=== PATIENT | female | born 1940 | race African-American/Black ===

== ENCOUNTER 2019-09-28 09:37 | Inpatient (IN) | payer OTHER, MEDICAID ==
[~2019-09-28] VITALS: Ht 165.1 cm; Wt 74.4 kg
[2019-09-28] MEDS ORDERED: AMLODIPINE 10MG TABLET PO ONE (10:45)
[2019-09-28 11:49] LABS: BASOPHILS % 0.8 % (0.0-2.0); EOSINOPHILS % 7.7 % (0.0-5.0); HEMATOCRIT. 31.5 % (42.0-52.0); HEMOGLOBIN. 10.2 g/dL (14.0-18.0); LYMPHOCYTES % 23.9 % (20.0-50.0); MEAN CORPUSCULAR HEMOGLOBIN 22.8 pg (28.0-32.0); MEAN PLATELET VOLUME 9.3 fl (7.4-10.4); MONOCYTES % 4.7 % (2.0-8.0); NEUTROPHILS % 62.9 % (40.0-76.0); PLATELET 248 x1000/uL (130-400); RED CELL DISTRIBUTION WIDTH 17.9 % (11.6-14.6)
[2019-09-28 11:55] LABS: CLARITY URINE CLEAR (CLEAR); COLOR URINE YELLOW (YELLOW); KETONES URINE NEGATIVE (NEGATIVE); LEUKOCYTE ESTERASE URINE NEGATIVE (NEGATIVE); NITRITE URINE NEGATIVE (NEGATIVE); OCCULT BLOOD URINE NEGATIVE (NEGATIVE); PROTEIN URINE 2+ (NEGATIVE); SPECIFIC GRAVITY URINE 1.012 (1.005-1.030); UROBILINOGEN URINE 0.2 E.U./dL (0.2-1.0)
[2019-09-28 11:57] LABS: CHLORIDE 115 mEq/L (98-107)
[2019-09-28] MEDS ORDERED: SODIUM CHLORIDE 0.9% 250 ML IV ONE (12:45)
[2019-09-28 12:46] LABS: PLATELET ESTIMATE NORMAL
[2019-09-28] MEDS ORDERED: ACETAMINOPHEN 325MG TABLET PO PRN (13:15)
[2019-09-28] MEDS ORDERED: ONDANSETRON HCL 4MG/2ML INJ IV PRN (13:15)
[2019-09-28] MEDS ORDERED: CLONIDINE 0.1MG TABLET PO NR (14:00)
[2019-09-28] MEDS: SODIUM CHLORIDE 0.9% 1,000 ML IV SCH (16:17)
[2019-09-29] VITALS (7 sets, daily range): BP systolic 121–170; BP diastolic 62–84
[2019-09-29] MEDS ORDERED: DEXTROSE 50% WATER 50ML SYRINGE IV PRN (01:00)
[2019-09-29] MEDS ORDERED: CHLO25TA2 PO (01:16)
[2019-09-29] MEDS ORDERED: GLIP10TA10 PO (01:17)
[2019-09-29] MEDS ORDERED: ATOR20TA65 PO (01:17)
[2019-09-29] MEDS ORDERED: ASPI-1158 PO (01:17)
[2019-09-29] MEDS ORDERED: FAMO20TA8 PO (01:17)
[2019-09-29] MEDS ORDERED: NIFE30TA94 PO (01:17)
[2019-09-29] MEDS ORDERED: CARV6.2548 PO (01:17)
[2019-09-29] MEDS: CLONIDINE 0.1MG TABLET PO PRN (05:51)
[2019-09-29] MEDS: BLOOD SUGAR DIAGNOSTIC STRIP TEST SCH ×4 (05:58→21:22)
[2019-09-29] MEDS: SODIUM CHLORIDE 0.9% 1,000 ML IV SCH (06:06)
[2019-09-29] MEDS ORDERED: INSULIN LISPRO 100 UNITS/ML SUBCUT SCH (08:10)
[2019-09-29 08:36] LABS: BASOPHILS % 0.7 % (0.0-2.0); EOSINOPHILS % 11.6 % (0.0-5.0); HEMATOCRIT. 24.2 % (36.0-48.0); HEMOGLOBIN. 7.8 g/dL (12.0-16.0); MEAN CORPUSCULAR HEMOGLOBIN 22.4 pg (28.0-32.0); MEAN CORPUSCULAR VOLUME 69.7 fL (81.0-99.0); MEAN PLATELET VOLUME 9.3 fl (7.4-10.4); MONOCYTES % 6.3 % (2.0-8.0); NEUTROPHILS % 51.4 % (40.0-76.0); PLATELET 232 x1000/uL (130-400); RED BLOOD CELL COUNT 3.47 mill/uL (4.2-5.4); RED CELL DISTRIBUTION WIDTH 17.9 % (11.6-14.6)
[2019-09-29] MEDS ORDERED: ENOXAPARIN 30MG/0.3ML SYR SUBCUT SCH (09:00)
[2019-09-29] MEDS ORDERED: CLOPIDOGREL 75MG TABLET PO SCH (09:00)
[2019-09-29] MEDS: AMLODIPINE 10MG TABLET PO SCH (09:24)
[2019-09-29 10:51] LABS: BG CARBOXYHEMOGLOBIN 0.3 % (0.5-1.5); BG DEOXYHEMOGLOBIN 3.9 % (0.0-5.0); BG FRACTION INSPIRED OXYGEN 21; BG HCO3 ACT 20.1 mmol/L (22.0-26.0); BG METHEMOGLOBIN 0.3 % (0.0-1.5); BG OXYGEN SATURATION 96.1 % (92.0-98.5); BG OXYHEMOGLOBIN 95.5 % (94.0-97.0); BG PCO2 36.9 mmHg (35.0-45.0); BG PH 7.353 (7.350-7.450); BG SAMPLE SITE RIGHT BRACHIAL; BG TOTAL HEMOGLOBIN 7.9 g/dL (12.0-18.0); BG VENT MODE ROOM AIR
[2019-09-29] MEDS: DEXT 5%/0.45% NACL 1000ML 1,000 ML IV SCH (12:39)
[2019-09-29 12:51] LABS: HEMATOCRIT 26.1 % (36.0-48.0); HEMOGLOBIN 8.6 g/dL (12.0-16.0)
[2019-09-29 13:01] LABS: INR 1.1; PROTHROMBIN TIME 10.9 sec (9.6-11.0)
[2019-09-29 13:32] LABS: TOTAL IRON BINDING CAPACITY 162 ug/dL (250-450)
[2019-09-30] VITALS (9 sets, daily range): BP systolic 138–186; BP diastolic 60–83
[2019-09-30] MEDS: CLONIDINE 0.1MG TABLET PO PRN ×2 (01:04→16:07)
[2019-09-30] MEDS: DEXT 5%/0.45% NACL 1000ML 1,000 ML IV SCH (04:22)
[2019-09-30] MEDS: BLOOD SUGAR DIAGNOSTIC STRIP TEST SCH ×4 (06:36→21:05)
[2019-09-30 07:06] LABS: HEMATOCRIT 22.1 % (36.0-48.0); HEMOGLOBIN 7.4 g/dL (12.0-16.0); MEAN CORPUSCULAR HEMOGLOBIN 23.1 pg (28.0-32.0); MEAN CORPUSCULAR VOLUME 69.2 fL (81.0-99.0); PLATELET 217 x1000/uL (130-400); RED BLOOD CELL COUNT 3.19 mill/uL (4.2-5.4); RED CELL DISTRIBUTION WIDTH 17.5 % (11.6-14.6)
[2019-09-30] MEDS: AMLODIPINE 10MG TABLET PO SCH (09:33)
[2019-09-30] MEDS ORDERED: PANTOPRAZOLE 40MG DR TABLET PO SCH (10:00)
[2019-09-30] MEDS ORDERED: HYDRALAZINE 20MG/ML VIAL IV PRN (16:15)
[2019-09-30] MEDS ORDERED: METOPROLOL TARTRATE 25MG TABLET PO NR (16:19)
[2019-09-30] MEDS ORDERED: HYDRALAZINE 20MG/ML VIAL IV NR (16:19)
[2019-09-30 19:43] LABS: HEMATOCRIT 29.2 % (36.0-48.0); HEMOGLOBIN 9.6 g/dL (12.0-16.0)
[2019-09-30 19:49] LABS: PROTHROMBIN TIME 10.6 sec (9.6-11.0)
[2019-09-30] MEDS ORDERED: METOPROLOL TARTRATE 25MG TABLET PO SCH (21:00)
[2019-09-30] MEDS ORDERED: HYDRALAZINE HCL 50MG TABLET PO SCH (22:00)
== END 2019-09-30 22:22 | DRG 74 ==
LOC: EDSEX 09:37 → ER 09:37 → 7WST 15:06 → EDBEDREQ 15:11 → EDBEDREQTM 15:11 → ENRESERV 22:33
PROVIDERS: ADMIT Internal Medicine; ATTEND Internal Medicine
PROC: 30233N1 Transfusion of Nonautologous Red Blood Cells into Peripheral Vein, Percutaneous Approach (ICD-10-PCS; principal; 2019-09-30)
DX: G90.8 Other disorders of autonomic nervous system (principal); N17.9 Acute kidney failure, unspecified; E44.1 Mild protein-calorie malnutrition; I13.0 Hypertensive heart and chronic kidney disease with heart failure and stage 1 through stage 4 chronic kidney disease, or unspecified chronic kidney disease; I31.3 Pericardial effusion (noninflammatory); E11.22 Type 2 diabetes mellitus with diabetic chronic kidney disease; E11.649 Type 2 diabetes mellitus with hypoglycemia without coma; E87.8 Other disorders of electrolyte and fluid balance, not elsewhere classified; I16.0 Hypertensive urgency; I50.9 Heart failure, unspecified; N18.9 Chronic kidney disease, unspecified; E86.0 Dehydration; Z79.84 Long term (current) use of oral hypoglycemic drugs; Z86.73 Personal history of transient ischemic attack (TIA), and cerebral infarction without residual deficits; D64.89 Other specified anemias
CPT/HCPCS: 36415; 36600; 71045; 74176; 80048; 80053; 80061; 81003; 82375; 82805; 82962; 83036; 83540; 83550; 83880; 84443; 84484; 85014; 85018; 85025; 85027; 85044; 85384; 86850; 86900; 86920; 93005; 93306; 93880; 96360; 96361; 97162; 99285; A6261; C1893; J0360; J1650; J7040; J7050; P9016

== ENCOUNTER 2020-02-19 09:42 | Inpatient (IN) | payer OTHER, MEDICAID ==
[~2020-02-19] VITALS: Ht 162.6 cm; Wt 79.8 kg
[2020-02-19] VITALS (29 sets, daily range): BP systolic 118–175; BP diastolic 51–122
[~2020-02-19 09:42] MED LIST: ASPI-1158 PO; ATOR20TA65 PO; CARV6.2548 PO; CHLO25TA2 PO; FAMO20TA8 PO; GLIP10TA10 PO; NIFE30TA94 PO
[2020-02-19] MEDS ORDERED: ATROPINE SULFATE 1MG/ML VIAL IV ONE (10:00)
[2020-02-19] MEDS ORDERED: ATROPINE SULFATE 1MG/10ML SYR IV ONE (10:11)
[2020-02-19] MEDS ORDERED: DOPAMINE 400MG/250ML PREMIX 250 ML IV ONE (10:15)
[2020-02-19 10:25] LABS: BASOPHILS % 0.8 % (0.0-2.0); EOSINOPHILS % 9.1 % (0.0-5.0); HEMATOCRIT. 23.1 % (36.0-48.0); HEMOGLOBIN. 7.7 g/dL (12.0-16.0); LYMPHOCYTES % 28.5 % (20.0-50.0); MEAN CORPUSCULAR HEMOGLOBIN 22.8 pg (28.0-32.0); MEAN CORPUSCULAR VOLUME 68.7 fL (81.0-99.0); MONOCYTES % 6.3 % (2.0-8.0); NEUTROPHILS % 55.3 % (40.0-76.0); PLATELET 166 x1000/uL (130-400); RED BLOOD CELL COUNT 3.36 mill/uL (4.2-5.4); RED CELL DISTRIBUTION WIDTH 15.4 % (11.6-14.6)
[2020-02-19 10:32] LABS: CHLORIDE 107 mEq/L (98-107)
[2020-02-19 10:34] LABS: PROTHROMBIN TIME 10.9 sec (9.6-11.0)
[2020-02-19] MEDS ORDERED: SODIUM CHLORIDE 0.9% 500 ML IV ONE (10:34)
[2020-02-19 10:40] LABS: CREATINE KINASE 238 IU/L (26-192)
[2020-02-19] MEDS ORDERED: SODIUM POLYSTYRENE SULFONATE 15 G/60 ML BOT PO SCH (11:00)
[2020-02-19 11:12] LABS: BG BASE EXCESS -10.4 mmol/L (-2.0-2.0); BG CARBOXYHEMOGLOBIN 0.9 % (0.5-1.5); BG DEOXYHEMOGLOBIN 7.6 % (0.0-5.0); BG FRACTION INSPIRED OXYGEN 21; BG HCO3 ACT 15.7 mmol/L (22.0-26.0); BG METHEMOGLOBIN 0.3 % (0.0-1.5); BG OXYGEN SATURATION 92.3 % (92.0-98.5); BG OXYHEMOGLOBIN 91.2 % (94.0-97.0); BG PCO2 35.6 mmHg (35.0-45.0); BG PH 7.262 (7.350-7.450); BG PO2 69.1 mmHg (75.0-100.0); BG SAMPLE SITE RIGHT RADIAL; BG TOTAL HEMOGLOBIN 7.3 g/dL (12.0-18.0); BG VENT MODE ROOM AIR
[2020-02-19 11:17] LABS: CLARITY URINE CLEAR (CLEAR); COLOR URINE YELLOW (YELLOW); KETONES URINE NEGATIVE (NEGATIVE); LEUKOCYTE ESTERASE URINE TRACE (NEGATIVE); NITRITE URINE NEGATIVE (NEGATIVE); OCCULT BLOOD URINE NEGATIVE (NEGATIVE); PROTEIN URINE 1+ (NEGATIVE); SPECIFIC GRAVITY URINE 1.015 (1.005-1.030); UROBILINOGEN URINE 0.2 E.U./dL (0.2-1.0)
[2020-02-19 11:18] LABS: PLATELET ESTIMATE NORMAL
[2020-02-19] MEDS ORDERED: SODIUM BICARBONATE 8.4% 1 MEQ/ML 50ML SYR IV ONE (11:30)
[2020-02-19] MEDS: NOREPINEPHRINE 4 MG in DEXT 5% WATER 246 ML IV PRN ×2 (12:50→17:55)
[2020-02-19 13:16] LABS: PHOSPHORUS 5.8 mg/dL (2.5-4.9)
[2020-02-19 13:20] LABS: T4 FREE 1.01 ng/dL (0.76-1.46)
[2020-02-19] MEDS ORDERED: ACETAMINOPHEN 325MG TABLET PO PRN (15:15)
[2020-02-19] MEDS ORDERED: ACETAMINOPHEN 650MG SUPP PR PRN (15:15)
[2020-02-19] MEDS ORDERED: HYDROCODONE/ACETAMINOPHEN 5/325MG TABLET PO PRN (15:15)
[2020-02-19] MEDS ORDERED: IPRATROPIUM/ALBUTEROL 0.5-3(2.5)MG/3ML NEB HHN PRN (15:15)
[2020-02-19] MEDS ORDERED: DEXTROSE 50% WATER 50ML SYRINGE IV PRN (15:15)
[2020-02-19] MEDS ORDERED: WATER IV PRN (15:30)
[2020-02-19] MEDS ORDERED: DEXT 5% IV PRN (15:30)
[2020-02-19] MEDS ORDERED: MAGNESIUM 1 G PREMIX 100 ML IV SCH (15:30)
[2020-02-19] MEDS ORDERED: DOPAMINE HCL IV PRN (15:30)
[2020-02-19 16:54] LABS: BG BASE EXCESS -9.7 mmol/L (-2.0-2.0); BG CARBOXYHEMOGLOBIN 0.4 % (0.5-1.5); BG DEOXYHEMOGLOBIN 3.7 % (0.0-5.0); BG FRACTION INSPIRED OXYGEN 21; BG METHEMOGLOBIN 0.3 % (0.0-1.5); BG OXYGEN SATURATION 96.3 % (92.0-98.5); BG OXYHEMOGLOBIN 95.6 % (94.0-97.0); BG PCO2 33.8 mmHg (35.0-45.0); BG PH 7.292 (7.350-7.450); BG PO2 88.1 mmHg (75.0-100.0); BG SAMPLE SITE RIGHT RADIAL; BG TOTAL HEMOGLOBIN 8.4 g/dL (12.0-18.0); BG VENT MODE ROOM AIR
[2020-02-19] MEDS ORDERED: PIPERACILLIN/TAZOBACTAM 2.25 G in DEXTROSE 5% WATER 50 ML IV SCH (17:00)
[2020-02-19] MEDS: BLOOD SUGAR DIAGNOSTIC STRIP TEST SCH ×2 (17:55→21:05)
[2020-02-19] MEDS ORDERED: NOREPINEPHRINE 16 MG in DEXT 5% WATER 234 ML IV PRN (18:00)
[2020-02-19] MEDS: FAMOTIDINE 20MG/2ML VIAL IV SCH (18:01)
[2020-02-19] MEDS: INSULIN LISPRO 100 UNITS/ML SUBCUT SCH ×2 (18:01→21:00)
[2020-02-19] MEDS: PIPERACILLIN/TAZOBACTAM 2.25 G in DEXTROSE 5% WATER 50 ML IV SCH (18:02)
[2020-02-19] MEDS ORDERED: PHENYLEPHRINE 10 MG in DEXT 5% WATER 249 ML IV PRN (19:00)
[2020-02-19] MEDS ORDERED: INSU100V37 SQ (19:55)
[2020-02-19] MEDS ORDERED: FERR325T6 MT (19:55)
[2020-02-19] MEDS ORDERED: MECL-183 PO (19:55)
[2020-02-19] MEDS ORDERED: PANT40TA4 MT (19:55)
[2020-02-19] MEDS ORDERED: TERA5CAP4 PO (19:55)
[2020-02-19] MEDS ORDERED: METO-539 MT (19:55)
[2020-02-19] MEDS ORDERED: INSU100I28 SQ (19:55)
[2020-02-19] MEDS ORDERED: HYDR-4135 MT (19:55)
[2020-02-19] MEDS ORDERED: FURO20TA4 PO (19:55)
[2020-02-19] MEDS ORDERED: LOSA100T32 MT (19:55)
[2020-02-19] MEDS ORDERED: EPOETIN ALFA 10000UNITS/ML VIAL SUBCUT NR (22:00)
[2020-02-20] VITALS (52 sets, daily range): BP systolic 117–187; BP diastolic 52–120
[2020-02-20] MEDS: HYDRALAZINE 20MG/ML VIAL IV PRN ×3 (01:24→16:22)
[2020-02-20] MEDS: PIPERACILLIN/TAZOBACTAM 2.25 G in DEXTROSE 5% WATER 50 ML IV SCH ×2 (05:23→16:57)
[2020-02-20 05:57] LABS: BASOPHILS % 0.9 % (0.0-2.0); EOSINOPHILS % 4.8 % (0.0-5.0); HEMATOCRIT. 25.5 % (36.0-48.0); HEMOGLOBIN. 8.8 g/dL (12.0-16.0); LYMPHOCYTES % 16.7 % (20.0-50.0); MEAN CORPUSCULAR VOLUME 69.5 fL (81.0-99.0); MEAN PLATELET VOLUME 9.1 fl (7.4-10.4); MONOCYTES % 6.8 % (2.0-8.0); NEUTROPHILS % 70.8 % (40.0-76.0); PLATELET 151 x1000/uL (130-400); RED BLOOD CELL COUNT 3.67 mill/uL (4.2-5.4); RED CELL DISTRIBUTION WIDTH 16.3 % (11.6-14.6)
[2020-02-20] MEDS ORDERED: NITROGLYCERIN OINT 1GM/INCH UDPKT TD SCH (06:00)
[2020-02-20 06:08] LABS: CHLORIDE 106 mEq/L (98-107)
[2020-02-20 06:19] LABS: PHOSPHORUS 4.3 mg/dL (2.5-4.9)
[2020-02-20] MEDS: INSULIN LISPRO 100 UNITS/ML SUBCUT SCH ×4 (08:20→20:30)
[2020-02-20] MEDS: FAMOTIDINE 20MG/2ML VIAL IV SCH (08:49)
[2020-02-20] MEDS: BLOOD SUGAR DIAGNOSTIC STRIP TEST SCH ×4 (08:49→20:30)
[2020-02-20 10:10] LABS: BG BASE EXCESS -0.7 mmol/L (-2.0-2.0); BG CARBOXYHEMOGLOBIN 0.1 % (0.5-1.5); BG DEOXYHEMOGLOBIN 2.8 % (0.0-5.0); BG FRACTION INSPIRED OXYGEN 21; BG HCO3 ACT 23.4 mmol/L (22.0-26.0); BG METHEMOGLOBIN 0.3 % (0.0-1.5); BG OXYGEN SATURATION 97.2 % (92.0-98.5); BG OXYHEMOGLOBIN 96.8 % (94.0-97.0); BG PCO2 36.3 mmHg (35.0-45.0); BG PH 7.428 (7.350-7.450); BG PO2 104.7 mmHg (75.0-100.0); BG SAMPLE SITE RIGHT RADIAL; BG TOTAL HEMOGLOBIN 8.8 g/dL (12.0-18.0); BG VENT MODE ROOM AIR
[2020-02-20] MEDS ORDERED: AMLODIPINE 5MG TABLET PO SCH ×2 (11:00→21:00)
[2020-02-20] MEDS ORDERED: LABETALOL 5MG/ML SYR 20 MG/4 ML SYRINGE IV NR (20:00)
[2020-02-20] MEDS: AMLODIPINE 5MG TABLET PO SCH (20:30)
[2020-02-20] MEDS: CLONIDINE 0.2MG TABLET PO SCH (21:35)
[2020-02-21] VITALS (28 sets, daily range): BP systolic 125–183; BP diastolic 52–119
[2020-02-21] MEDS: PIPERACILLIN/TAZOBACTAM 2.25 G in DEXTROSE 5% WATER 50 ML IV SCH ×2 (05:30→17:37)
[2020-02-21] MEDS: CLONIDINE 0.2MG TABLET PO SCH ×3 (05:30→22:14)
[2020-02-21 05:41] LABS: EOSINOPHILS % 5.9 % (0.0-5.0); HEMATOCRIT. 23.4 % (36.0-48.0); HEMOGLOBIN. 8.1 g/dL (12.0-16.0); LYMPHOCYTES % 19.6 % (20.0-50.0); MEAN CORPUSCULAR HEMOGLOBIN 23.8 pg (28.0-32.0); MEAN CORPUSCULAR VOLUME 69.1 fL (81.0-99.0); MEAN PLATELET VOLUME 9.1 fl (7.4-10.4); MONOCYTES % 9.2 % (2.0-8.0); NEUTROPHILS % 64.3 % (40.0-76.0); PLATELET 155 x1000/uL (130-400); RED BLOOD CELL COUNT 3.39 mill/uL (4.2-5.4)
[2020-02-21] MEDS: INSULIN LISPRO 100 UNITS/ML SUBCUT SCH ×3 (08:20→20:15)
[2020-02-21] MEDS: FAMOTIDINE 20MG/2ML VIAL IV SCH (08:23)
[2020-02-21] MEDS: BLOOD SUGAR DIAGNOSTIC STRIP TEST SCH ×4 (08:23→20:14)
[2020-02-21] MEDS: AMLODIPINE 5MG TABLET PO SCH ×2 (08:23→20:14)
[2020-02-21] MEDS: NYSTATIN POWDER 15GM TOP SCH (16:00)
[2020-02-21] MEDS: HYDRALAZINE 20MG/ML VIAL IV PRN (21:05)
[2020-02-22] VITALS (12 sets, daily range): BP systolic 95–173; BP diastolic 59–83
[2020-02-22] MEDS: CLONIDINE 0.2MG TABLET PO SCH ×3 (05:22→22:02)
[2020-02-22] MEDS: BLOOD SUGAR DIAGNOSTIC STRIP TEST SCH ×4 (05:22→21:15)
[2020-02-22] MEDS: PIPERACILLIN/TAZOBACTAM 2.25 G in DEXTROSE 5% WATER 50 ML IV SCH ×2 (05:22→17:02)
[2020-02-22] MEDS: INSULIN LISPRO 100 UNITS/ML SUBCUT SCH ×4 (07:20→21:00)
[2020-02-22 07:42] LABS: HEMATOCRIT 24.3 % (36.0-48.0); HEMOGLOBIN 8.3 g/dL (12.0-16.0); MEAN CORPUSCULAR HEMOGLOBIN 23.9 pg (28.0-32.0); MEAN CORPUSCULAR VOLUME 69.6 fL (81.0-99.0); PLATELET 154 x1000/uL (130-400); RED BLOOD CELL COUNT 3.49 mill/uL (4.2-5.4); RED CELL DISTRIBUTION WIDTH 16.1 % (11.6-14.6)
[2020-02-22] MEDS: FAMOTIDINE 20MG/2ML VIAL IV SCH (08:31)
[2020-02-22] MEDS: AMLODIPINE 5MG TABLET PO SCH ×2 (08:31→21:12)
[2020-02-22] MEDS: NYSTATIN POWDER 15GM TOP SCH (08:31)
[2020-02-22 08:45] LABS: CHLORIDE 105 mEq/L (98-107)
[2020-02-22] MEDS: HYDRALAZINE 20MG/ML VIAL IV PRN (14:16)
[2020-02-22] MEDS: HEPARIN 5000 UNITS/ML VIAL SUBCUT SCH ×2 (14:18→21:11)
[2020-02-22] MEDS ORDERED: HYDRALAZINE HCL 25MG TABLET PO NR (15:30)
[2020-02-22] MEDS: HYDRALAZINE HCL 25MG TABLET PO SCH (22:02)
[2020-02-23] VITALS (12 sets, daily range): BP systolic 131–171; BP diastolic 57–77
[2020-02-23] MEDS: PIPERACILLIN/TAZOBACTAM 2.25 G in DEXTROSE 5% WATER 50 ML IV SCH ×2 (05:14→16:31)
[2020-02-23] MEDS: HYDRALAZINE HCL 25MG TABLET PO SCH (05:14)
[2020-02-23] MEDS: CLONIDINE 0.2MG TABLET PO SCH ×3 (05:15→22:07)
[2020-02-23] MEDS: BLOOD SUGAR DIAGNOSTIC STRIP TEST SCH ×4 (06:56→20:49)
[2020-02-23] MEDS: INSULIN LISPRO 100 UNITS/ML SUBCUT SCH ×4 (06:56→20:49)
[2020-02-23 08:11] LABS: BASOPHILS % 0.9 % (0.0-2.0); EOSINOPHILS % 2.6 % (0.0-5.0); HEMATOCRIT. 24.7 % (36.0-48.0); HEMOGLOBIN. 8.5 g/dL (12.0-16.0); MEAN CORPUSCULAR HEMOGLOBIN 23.9 pg (28.0-32.0); MEAN CORPUSCULAR VOLUME 69.7 fL (81.0-99.0); MEAN PLATELET VOLUME 8.9 fl (7.4-10.4); MONOCYTES % 12.5 % (2.0-8.0); PLATELET 166 x1000/uL (130-400); RED BLOOD CELL COUNT 3.54 mill/uL (4.2-5.4); RED CELL DISTRIBUTION WIDTH 16.3 % (11.6-14.6)
[2020-02-23 08:16] LABS: CHLORIDE 105 mEq/L (98-107)
[2020-02-23] MEDS: DOCUSATE SODIUM 100MG CAPSULE PO PRN (09:13)
[2020-02-23] MEDS: AMLODIPINE 5MG TABLET PO SCH ×2 (09:13→20:48)
[2020-02-23] MEDS: FAMOTIDINE 20MG/2ML VIAL IV SCH (09:13)
[2020-02-23] MEDS: NYSTATIN POWDER 15GM TOP SCH (09:14)
[2020-02-23] MEDS: HEPARIN 5000 UNITS/ML VIAL SUBCUT SCH ×2 (09:15→20:47)
[2020-02-23] MEDS: SODIUM CHLORIDE 0.9% 1,000 ML IV SCH (14:04)
[2020-02-23] MEDS: HYDRALAZINE HCL 50MG TABLET PO SCH ×2 (14:05→22:07)
[2020-02-24] VITALS (11 sets, daily range): BP systolic 127–149; BP diastolic 44–74
[2020-02-24] MEDS: HYDRALAZINE HCL 50MG TABLET PO SCH (06:30)
[2020-02-24] MEDS: PIPERACILLIN/TAZOBACTAM 2.25 G in DEXTROSE 5% WATER 50 ML IV SCH ×2 (06:30→16:50)
[2020-02-24] MEDS: CLONIDINE 0.2MG TABLET PO SCH ×2 (06:30→13:02)
[2020-02-24] MEDS: BLOOD SUGAR DIAGNOSTIC STRIP TEST SCH ×3 (06:37→16:35)
[2020-02-24 06:49] LABS: BASOPHILS % 0.6 % (0.0-2.0); HEMATOCRIT. 23.1 % (36.0-48.0); HEMOGLOBIN. 7.9 g/dL (12.0-16.0); LYMPHOCYTES % 19.6 % (20.0-50.0); MEAN CORPUSCULAR HEMOGLOBIN 23.7 pg (28.0-32.0); MEAN CORPUSCULAR VOLUME 69.3 fL (81.0-99.0); MEAN PLATELET VOLUME 9.5 fl (7.4-10.4); MONOCYTES % 11.5 % (2.0-8.0); NEUTROPHILS % 63.3 % (40.0-76.0); PLATELET 166 x1000/uL (130-400); RED BLOOD CELL COUNT 3.33 mill/uL (4.2-5.4); RED CELL DISTRIBUTION WIDTH 16.1 % (11.6-14.6)
[2020-02-24] MEDS: INSULIN LISPRO 100 UNITS/ML SUBCUT SCH ×3 (07:02→16:35)
[2020-02-24] MEDS ORDERED: REGADENOSON 0.4 MG/5 ML IV ONE (08:10)
[2020-02-24] MEDS ORDERED: REGADENOSON 0.4 MG/5 ML IV SCH (09:00)
[2020-02-24] MEDS: DOCUSATE SODIUM 100MG CAPSULE PO PRN (09:16)
[2020-02-24] MEDS: FAMOTIDINE 20MG/2ML VIAL IV SCH (09:16)
[2020-02-24] MEDS: AMLODIPINE 5MG TABLET PO SCH (09:20)
[2020-02-24] MEDS: HEPARIN 5000 UNITS/ML VIAL SUBCUT SCH (09:21)
[2020-02-24] MEDS: SODIUM CHLORIDE 0.9% 1,000 ML IV SCH (09:21)
[2020-02-24] MEDS: NYSTATIN POWDER 15GM TOP SCH (09:22)
[2020-02-24] MEDS ORDERED: HYDRALAZINE HCL 50MG TABLET PO SCH (14:00)
[2020-02-24] MEDS ORDERED: ATOR20TA MT (14:22)
[2020-02-24] MEDS ORDERED: HYDR100T26 MT (14:22)
[2020-02-24] MEDS ORDERED: ASPI-1497 MT (14:22)
[2020-02-24] MEDS ORDERED: AMLO10TA4 MT (14:22)
[2020-02-24] MEDS ORDERED: ATORVASTATIN CALCIUM 20MG TABLET PO SCH (21:00)
[2020-02-25] MEDS ORDERED: ASPIRIN 81MG EC TABLET PO SCH (09:00)
== END 2020-02-24 18:02 | disposition home health service (06) | DRG 291 ==
LOC: ER 09:42 → MICUSO 10:17 → EDBEDREQSVC 10:41 → EDBEDREQ 10:41 → CVICU 16:18 → 3WST 02-21 13:23
PROVIDERS: ADMIT Internal Medicine; ATTEND Internal Medicine
PROC: 02HV33Z Insertion of Infusion Device into Superior Vena Cava, Percutaneous Approach (ICD-10-PCS; principal; 2020-02-19)
PROC: B548ZZA Ultrasonography of Superior Vena Cava, Guidance (ICD-10-PCS; 2020-02-19)
PROC: 30233N1 Transfusion of Nonautologous Red Blood Cells into Peripheral Vein, Percutaneous Approach (ICD-10-PCS; 2020-02-19)
PROC: 5A1D70Z Performance of Urinary Filtration, Intermittent, Less than 6 Hours Per Day (ICD-10-PCS; 2020-02-19)
DX: I13.0 Hypertensive heart and chronic kidney disease with heart failure and stage 1 through stage 4 chronic kidney disease, or unspecified chronic kidney disease (principal); N17.0 Acute kidney failure with tubular necrosis; I50.43 Acute on chronic combined systolic (congestive) and diastolic (congestive) heart failure; I31.3 Pericardial effusion (noninflammatory); E87.2 Acidosis; J98.11 Atelectasis; R00.1 Bradycardia, unspecified; I25.5 Ischemic cardiomyopathy; E87.5 Hyperkalemia; E11.22 Type 2 diabetes mellitus with diabetic chronic kidney disease; E83.42 Hypomagnesemia; E03.9 Hypothyroidism, unspecified; E78.5 Hyperlipidemia, unspecified; I27.20 Pulmonary hypertension, unspecified; E11.42 Type 2 diabetes mellitus with diabetic polyneuropathy; N18.3 Chronic kidney disease, stage 3 (moderate); D63.1 Anemia in chronic kidney disease; R26.89 Other abnormalities of gait and mobility; Z86.73 Personal history of transient ischemic attack (TIA), and cerebral infarction without residual deficits; Z79.82 Long term (current) use of aspirin; Z79.899 Other long term (current) drug therapy
CPT/HCPCS: 36415; 36600; 71045; 76937; 78452; 80048; 80053; 81003; 82375; 82550; 82805; 82962; 83036; 83605; 83735; 83880; 84100; 84145; 84439; 84443; 84484; 85025; 85027; 86850; 86900; 86920; 93005; 93017; 93306; 93923; 93970; 97162; 97530; 99291; A9500; C1752; J0360; J0461; J0885; J1265; J1644; J1815; J2543; J2785; J3475; J3490; J7030; J7040; J7060; P9016

== ENCOUNTER 2021-01-02 15:59 | Inpatient (IN) | payer OTHER, MEDICAID ==
[~2021-01-02] VITALS: Ht 167.6 cm; Wt 63.8 kg
[~2021-01-02 15:59] MED LIST changes: +AMLO10TA4 MT; -ASPI-1158 PO; +ASPI-1406 PO; +ASPI-1497 MT; +ATOR20TA MT; -CARV6.2548 PO; -CHLO25TA2 PO; -FAMO20TA8 PO; +FERR325T6 MT; -GLIP10TA10 PO; +HYDR100T26 MT; -NIFE30TA94 PO; +PANT40TA51 MT
[2021-01-02] MEDS ORDERED: INSULIN REGULAR (HUMULIN R) 300UNITS/3ML VIAL IV ONE (16:15)
[2021-01-02] MEDS ORDERED: CALCIUM CHLORIDE 1GM/10ML SYR IV ONE (16:15)
[2021-01-02] MEDS ORDERED: SODIUM BICARBONATE 8.4% 1 MEQ/ML 50ML SYR IV ONE (16:15)
[2021-01-02] MEDS ORDERED: SODIUM CHLORIDE 0.9% 500 ML IV ONE (16:15)
[2021-01-02] MEDS ORDERED: DEXTROSE 50% WATER 50ML SYRINGE IV ONE (16:15)
[2021-01-02 16:30] LABS: BASOPHILS % 1.1 % (0.0-2.0); EOSINOPHILS % 3.8 % (0.0-5.0); LYMPHOCYTES % 19.9 % (20.0-50.0); MEAN CORPUSCULAR HEMOGLOBIN 22.3 pg (28.0-32.0); MONOCYTES % 5.1 % (2.0-8.0); NEUTROPHILS % 70.1 % (40.0-76.0); PLATELET 316 x1000/uL (130-400); RED BLOOD CELL COUNT 2.97 mill/uL (4.2-5.4); RED CELL DISTRIBUTION WIDTH 14.7 % (11.6-14.6)
[2021-01-02 16:35] LABS: CHLORIDE 96 mEq/L (98-107)
[2021-01-02 16:37] LABS: HEMATOCRIT. 20.2 % (36.0-48.0); HEMOGLOBIN. 6.6 g/dL (12.0-16.0)
[2021-01-02 16:39] LABS: PROTHROMBIN TIME 10.9 sec (9.6-11.0)
[2021-01-02 16:42] LABS: PHOSPHORUS 3.9 mg/dL (2.5-4.9)
[2021-01-02 16:44] LABS: BG BASE EXCESS -2.8 mmol/L (-2.0-2.0); BG CARBOXYHEMOGLOBIN 0.3 % (0.5-1.5); BG DEOXYHEMOGLOBIN 12.2 % (0.0-5.0); BG HCO3 ACT 20.9 mmol/L (22.0-26.0); BG METHEMOGLOBIN 0.1 % (0.0-1.5); BG OXYGEN SATURATION 87.8 % (92.0-98.5); BG OXYHEMOGLOBIN 87.4 % (94.0-97.0); BG PCO2 31.2 mmHg (35.0-45.0); BG PH 7.443 (7.350-7.450); BG PO2 52.9 mmHg (75.0-100.0); BG SAMPLE SITE RIGHT RADIAL; BG TOTAL HEMOGLOBIN 7.3 g/dL (12.0-18.0); BG VENT MODE ROOM AIR
[2021-01-02 16:45] LABS: T4 FREE 1.24 ng/dL (0.76-1.46)
[2021-01-02] MEDS ORDERED: DOPAMINE 400MG/250ML PREMIX 250 ML IV ONE ×2 (17:00)
[2021-01-02] MEDS ORDERED: ATROPINE SULFATE 1MG/10ML SYR IV ONE (17:00)
[2021-01-02 17:22] LABS: TOTAL IRON BINDING CAPACITY 204 ug/dL (250-450)
[2021-01-02 17:22] LABS: PLATELET ESTIMATE NORMAL
[2021-01-02 23:00] VITALS: BP 127/51
[2021-01-02 23:30] VITALS: BP 132/53
[2021-01-02 23:45] VITALS: BP 131/54
[2021-01-02] MEDS ORDERED: ATROPINE SULFATE 1MG/ML VIAL IV PRN (23:45)
[2021-01-02] MEDS ORDERED: DEXT 5%/0.9% NACL 1,000 ML IV SCH (23:45)
[2021-01-03] VITALS (87 sets, daily range): BP systolic 13–160; BP diastolic 28–119
[2021-01-03] MEDS ORDERED: PIPERACILLIN/TAZOBACTAM 2.25 G in DEXTROSE 5% WATER 50 ML IV NR (01:00)
[2021-01-03] MEDS: DOPAMINE 400MG/250ML PREMIX 250 ML IV PRN ×3 (01:31→19:10)
[2021-01-03 05:36] LABS: BASOPHILS % 0.2 % (0.0-2.0); EOSINOPHILS % 0.1 % (0.0-5.0); HEMATOCRIT. 32.3 % (36.0-48.0); HEMOGLOBIN. 10.3 g/dL (12.0-16.0); LYMPHOCYTES % 7.8 % (20.0-50.0); MEAN CORPUSCULAR HEMOGLOBIN 24.1 pg (28.0-32.0); MEAN CORPUSCULAR VOLUME 75.5 fL (81.0-99.0); MEAN PLATELET VOLUME 8.3 fl (7.4-10.4); MONOCYTES % 7.2 % (2.0-8.0); NEUTROPHILS % 84.7 % (40.0-76.0); PLATELET 307 x1000/uL (130-400); RED BLOOD CELL COUNT 4.28 mill/uL (4.2-5.4); RED CELL DISTRIBUTION WIDTH 20.7 % (11.6-14.6)
[2021-01-03] MEDS ORDERED: ONDANSETRON HCL 4MG/2ML INJ IV PRN (08:00)
[2021-01-03] MEDS ORDERED: DEXTROSE 50% WATER 50ML SYRINGE IV PRN (08:00)
[2021-01-03] MEDS: PANTOPRAZOLE SODIUM 40 MG/VIAL IV SCH (08:18)
[2021-01-03] MEDS: INSULIN LISPRO 100 UNITS/ML SUBCUT SCH ×4 (08:19→20:34)
[2021-01-03 08:57] LABS: BASOPHILS % 0.6 % (0.0-2.0); EOSINOPHILS % 0.1 % (0.0-5.0); HEMATOCRIT. 29.4 % (36.0-48.0); HEMOGLOBIN. 9.7 g/dL (12.0-16.0); LYMPHOCYTES % 7.3 % (20.0-50.0); MEAN CORPUSCULAR HEMOGLOBIN 24.5 pg (28.0-32.0); MEAN CORPUSCULAR VOLUME 73.9 fL (81.0-99.0); MEAN PLATELET VOLUME 8.3 fl (7.4-10.4); MONOCYTES % 7.7 % (2.0-8.0); NEUTROPHILS % 84.3 % (40.0-76.0); PLATELET 297 x1000/uL (130-400); RED BLOOD CELL COUNT 3.98 mill/uL (4.2-5.4); RED CELL DISTRIBUTION WIDTH 19.7 % (11.6-14.6)
[2021-01-03] MEDS ORDERED: PIPERACILLIN/TAZOBACTAM 2.25 G in DEXTROSE 5% WATER 50 ML IV SCH (09:00)
[2021-01-03 09:12] LABS: INR 1.1; PROTHROMBIN TIME 11.3 sec (9.6-11.0)
[2021-01-03 11:35] LABS: CLARITY URINE TURBID (CLEAR); COLOR URINE YELLOW (YELLOW); KETONES URINE TRACE (NEGATIVE); LEUKOCYTE ESTERASE URINE 3+ (NEGATIVE); NITRITE URINE NEGATIVE (NEGATIVE); OCCULT BLOOD URINE 1+ (NEGATIVE); PROTEIN URINE 3+ (NEGATIVE); SPECIFIC GRAVITY URINE 1.019 (1.005-1.030); UROBILINOGEN URINE 0.2 E.U./dL (0.2-1.0)
[2021-01-03 11:44] LABS: BG BASE EXCESS -3.9 mmol/L (-2.0-2.0); BG CARBOXYHEMOGLOBIN 0.3 % (0.5-1.5); BG DEOXYHEMOGLOBIN 7.9 % (0.0-5.0); BG FRACTION INSPIRED OXYGEN 40; BG HCO3 ACT 20.9 mmol/L (22.0-26.0); BG METHEMOGLOBIN 0.3 % (0.0-1.5); BG OXYGEN SATURATION 92.1 % (92.0-98.5); BG OXYHEMOGLOBIN 91.5 % (94.0-97.0); BG PCO2 36.9 mmHg (35.0-45.0); BG SAMPLE SITE RIGHT RADIAL; BG TOTAL HEMOGLOBIN 11.3 g/dL (12.0-18.0); BG VENT MODE NASAL CANNULA
[2021-01-03] MEDS: BLOOD SUGAR DIAGNOSTIC STRIP TEST SCH ×3 (12:00→20:28)
[2021-01-03] MEDS: FUROSEMIDE 40MG/4ML VIAL IVP SCH ×2 (12:22→16:24)
[2021-01-03] MEDS ORDERED: FURO80TA3 MT (15:29)
[2021-01-03] MEDS ORDERED: FLUO15CR2 TP (15:30)
[2021-01-03] MEDS: FLUCONAZOLE 100MG TABLET PO SCH (15:55)
[2021-01-03] MEDS: CEFEPIME 1,000 MG in DEXTROSE 5% WATER 50 ML IV SCH (16:24)
[2021-01-03] MEDS ORDERED: ACETAMINOPHEN 650MG SUPP PR PRN (17:45)
[2021-01-03] MEDS ORDERED: ACETAMINOPHEN 325MG TABLET PO PRN (17:45)
[2021-01-03] MEDS ORDERED: BISACODYL 10MG SUPP PR PRN (17:45)
[2021-01-03] MEDS ORDERED: HYDROCODONE/ACETAMINOPHEN 5/325MG TABLET PO PRN (17:45)
[2021-01-03] MEDS ORDERED: IPRATROPIUM/ALBUTEROL 0.5-3(2.5)MG/3ML NEB HHN PRN (17:45)
[2021-01-03 18:03] LABS: FOLIC ACID (FOLATE) SERUM >20 ng/mL ng/mL (>5.38)
[2021-01-03 18:15] LABS: VITAMIN B12 SERUM 1287 pg/mL (211-911)
[2021-01-03] MEDS: AMOXICILLIN 500 MG CAPSULE PO SCH (18:29)
[2021-01-03 19:22] LABS: CREATINE KINASE MB FRACTION 2.8 ng/mL (0.5-3.6)
[2021-01-03] MEDS ORDERED: FUROSEMIDE 20MG/2ML VIAL IVP SCH (19:42)
[2021-01-03] MEDS: FUROSEMIDE IV SCH (21:37)
[2021-01-03] MEDS: SODIUM CHLORIDE 0.9% IV SCH (21:37)
[2021-01-04] VITALS (82 sets, daily range): BP systolic 92–174; BP diastolic 37–115
[2021-01-04 05:38] LABS: BASOPHILS % 0.6 % (0.0-2.0); EOSINOPHILS % 0.2 % (0.0-5.0); HEMATOCRIT. 28.9 % (36.0-48.0); HEMOGLOBIN. 9.5 g/dL (12.0-16.0); LYMPHOCYTES % 8.7 % (20.0-50.0); MEAN CORPUSCULAR HEMOGLOBIN 24.6 pg (28.0-32.0); MEAN CORPUSCULAR VOLUME 74.5 fL (81.0-99.0); MEAN PLATELET VOLUME 8.7 fl (7.4-10.4); MONOCYTES % 6.3 % (2.0-8.0); NEUTROPHILS % 84.2 % (40.0-76.0); PLATELET 284 x1000/uL (130-400); RED BLOOD CELL COUNT 3.87 mill/uL (4.2-5.4); RED CELL DISTRIBUTION WIDTH 20.2 % (11.6-14.6)
[2021-01-04] MEDS: FUROSEMIDE 40MG/4ML VIAL IVP SCH ×2 (07:15→16:53)
[2021-01-04] MEDS: INSULIN LISPRO 100 UNITS/ML SUBCUT SCH ×4 (08:20→21:00)
[2021-01-04] MEDS: SODIUM CHLORIDE 0.9% IV SCH (08:21)
[2021-01-04] MEDS: FUROSEMIDE IV SCH (08:21)
[2021-01-04] MEDS: BLOOD SUGAR DIAGNOSTIC STRIP TEST SCH ×3 (08:23→21:34)
[2021-01-04] MEDS ORDERED: LIDOCAINE HCL 1% 20ML VIAL (Pyxis) INJ ONE (08:26)
[2021-01-04] MEDS ORDERED: FUROSEMIDE 20MG/2ML VIAL IVP SCH ×2 (09:00→18:00)
[2021-01-04] MEDS: PANTOPRAZOLE SODIUM 40 MG/VIAL IV SCH (09:53)
[2021-01-04] MEDS: FLUCONAZOLE 100MG TABLET PO SCH (09:53)
[2021-01-04] MEDS: AMOXICILLIN 500 MG CAPSULE PO SCH (09:53)
[2021-01-04] MEDS ORDERED: DOCUSATE SODIUM SUGAR FREE 100MG/10ML UDC PO PRN (10:00)
[2021-01-04] MEDS: AMLODIPINE 5MG TABLET PO SCH (11:58)
[2021-01-04] MEDS ORDERED: METO-539 PO (15:49)
[2021-01-04] MEDS: CEFEPIME 1,000 MG in DEXTROSE 5% WATER 50 ML IV SCH (16:53)
[2021-01-04 17:14] LABS: BG BASE EXCESS 2.8 mmol/L (-2.0-2.0); BG CARBOXYHEMOGLOBIN 0.3 % (0.5-1.5); BG FRACTION INSPIRED OXYGEN 100; BG HCO3 ACT 26.2 mmol/L (22.0-26.0); BG METHEMOGLOBIN 0.2 % (0.0-1.5); BG OXYHEMOGLOBIN 98.5 % (94.0-97.0); BG PO2 184.8 mmHg (75.0-100.0); BG SAMPLE SITE RIGHT RADIAL; BG TOTAL HEMOGLOBIN 10.9 g/dL (12.0-18.0); BG VENT MODE MASK - NRB
[2021-01-04] MEDS: ATORVASTATIN CALCIUM 10MG TABLET PO SCH (21:38)
[2021-01-05] VITALS (61 sets, daily range): BP systolic 106–162; BP diastolic 44–101
[2021-01-05 05:30] LABS: BASOPHILS % 0.2 % (0.0-2.0); EOSINOPHILS % 2.1 % (0.0-5.0); HEMATOCRIT. 29.1 % (36.0-48.0); HEMOGLOBIN. 9.4 g/dL (12.0-16.0); LYMPHOCYTES % 9.8 % (20.0-50.0); MEAN CORPUSCULAR HEMOGLOBIN 24.2 pg (28.0-32.0); MEAN CORPUSCULAR VOLUME 74.9 fL (81.0-99.0); MEAN PLATELET VOLUME 8.4 fl (7.4-10.4); MONOCYTES % 7.2 % (2.0-8.0); NEUTROPHILS % 80.7 % (40.0-76.0); PLATELET 280 x1000/uL (130-400); RED BLOOD CELL COUNT 3.89 mill/uL (4.2-5.4); RED CELL DISTRIBUTION WIDTH 20.5 % (11.6-14.6)
[2021-01-05] MEDS: FUROSEMIDE 40MG/4ML VIAL IVP SCH ×2 (06:25→16:24)
[2021-01-05] MEDS: BLOOD SUGAR DIAGNOSTIC STRIP TEST SCH ×4 (07:50→21:00)
[2021-01-05] MEDS: INSULIN LISPRO 100 UNITS/ML SUBCUT SCH ×4 (08:20→22:00)
[2021-01-05] MEDS: AMLODIPINE 5MG TABLET PO SCH (09:44)
[2021-01-05] MEDS: PANTOPRAZOLE SODIUM 40 MG/VIAL IV SCH ×2 (09:44→22:12)
[2021-01-05] MEDS ORDERED: SORBITOL 70% SOLN 30ML PO SCH ×2 (16:00→20:00)
[2021-01-05] MEDS: CEFEPIME 1,000 MG in DEXTROSE 5% WATER 50 ML IV SCH (16:24)
[2021-01-05] MEDS: EPOETIN ALFA-EPBX 4,000 UNIT/ML VIAL SUBCUT SCH (22:12)
[2021-01-05] MEDS: ATORVASTATIN CALCIUM 10MG TABLET PO SCH (22:13)
[2021-01-06] VITALS (50 sets, daily range): BP systolic 91–184; BP diastolic 46–117
[2021-01-06] MEDS: DEXT 5%/0.45% NACL 1000ML 1,000 ML IV SCH (01:00)
[2021-01-06 05:25] LABS: HEMATOCRIT. 31.5 % (36.0-48.0); HEMOGLOBIN. 10.3 g/dL (12.0-16.0); MEAN CORPUSCULAR HEMOGLOBIN 24.4 pg (28.0-32.0); MEAN CORPUSCULAR VOLUME 74.4 fL (81.0-99.0); MEAN PLATELET VOLUME 8.5 fl (7.4-10.4); PLATELET 300 x1000/uL (130-400); RED BLOOD CELL COUNT 4.23 mill/uL (4.2-5.4)
[2021-01-06 05:26] LABS: CHLORIDE 106 mEq/L (98-107)
[2021-01-06 05:32] LABS: INR 1.1; PARTIAL THROMBOPLASTIN TIME 27.1 sec (23.4-31.0); PROTHROMBIN TIME 11.9 sec (9.6-11.0)
[2021-01-06] MEDS: FUROSEMIDE 40MG/4ML VIAL IVP SCH ×2 (06:16→17:32)
[2021-01-06] MEDS: INSULIN LISPRO 100 UNITS/ML SUBCUT SCH ×4 (08:20→21:43)
[2021-01-06] MEDS: BLOOD SUGAR DIAGNOSTIC STRIP TEST SCH ×4 (08:41→21:10)
[2021-01-06] MEDS: AMLODIPINE 5MG TABLET PO SCH (08:41)
[2021-01-06] MEDS: PANTOPRAZOLE SODIUM 40 MG/VIAL IV SCH ×2 (09:19→21:42)
[2021-01-06] MEDS ORDERED: FENTANYL CITRATE/PF 50MCG/ML 2ML VIAL ONE (12:29)
[2021-01-06] MEDS ORDERED: DIAZEPAM 5 MG/ML 2ML CPJ ONE (12:30)
[2021-01-06] MEDS ORDERED: MIDAZOLAM HCL 5 MG/5 ML VIAL ONE (12:30)
[2021-01-06] MEDS ORDERED: MIDAZOLAM HCL 2 MG/2 ML VIAL IV PRN (12:54)
[2021-01-06] MEDS ORDERED: FENTANYL CITRATE/PF 50MCG/ML 2ML VIAL IV PRN (12:55)
[2021-01-06] MEDS: CEFEPIME 1,000 MG in DEXTROSE 5% WATER 50 ML IV SCH (17:32)
[2021-01-06 17:59] LABS: PLATELET ESTIMATE NORMAL
[2021-01-06] MEDS: ATORVASTATIN CALCIUM 10MG TABLET PO SCH (21:42)
[2021-01-07] VITALS (12 sets, daily range): BP systolic 115–178; BP diastolic 53–96
[2021-01-07] MEDS: DEXT 5%/0.45% NACL 1000ML 1,000 ML IV SCH ×2 (00:02→23:08)
[2021-01-07] MEDS: HYDRALAZINE 20MG/ML VIAL IV PRN (04:33)
[2021-01-07 05:50] LABS: BASOPHILS % 0.5 % (0.0-2.0); EOSINOPHILS % 9.1 % (0.0-5.0); HEMATOCRIT. 28.8 % (36.0-48.0); HEMOGLOBIN. 9.3 g/dL (12.0-16.0); LYMPHOCYTES % 9.2 % (20.0-50.0); MEAN CORPUSCULAR VOLUME 74.8 fL (81.0-99.0); MEAN PLATELET VOLUME 8.3 fl (7.4-10.4); MONOCYTES % 7.6 % (2.0-8.0); NEUTROPHILS % 73.6 % (40.0-76.0); PLATELET 261 x1000/uL (130-400); RED BLOOD CELL COUNT 3.86 mill/uL (4.2-5.4); RED CELL DISTRIBUTION WIDTH 20.6 % (11.6-14.6)
[2021-01-07] MEDS: FUROSEMIDE 40MG/4ML VIAL IVP SCH ×2 (06:54→16:46)
[2021-01-07] MEDS: BLOOD SUGAR DIAGNOSTIC STRIP TEST SCH ×4 (07:01→20:41)
[2021-01-07] MEDS: INSULIN LISPRO 100 UNITS/ML SUBCUT SCH ×4 (07:20→21:05)
[2021-01-07] MEDS: PANTOPRAZOLE SODIUM 40 MG/VIAL IV SCH ×2 (08:22→21:03)
[2021-01-07] MEDS: AMLODIPINE 5MG TABLET PO SCH ×2 (08:22→21:04)
[2021-01-07] MEDS: SUCRALFATE 1 G/10 ML UDC PO SCH ×3 (11:58→21:03)
[2021-01-07] MEDS ORDERED: POTASSIUM CHLORIDE 20MEQ TABLET SR PO SCH (13:00)
[2021-01-07] MEDS: ENOXAPARIN 60MG/0.6ML SYR SUBCUT SCH (13:15)
[2021-01-07] MEDS: CEFEPIME 1,000 MG in DEXTROSE 5% WATER 50 ML IV SCH (16:46)
[2021-01-07] MEDS: ATORVASTATIN CALCIUM 10MG TABLET PO SCH (21:03)
[2021-01-07] MEDS: EPOETIN ALFA-EPBX 4,000 UNIT/ML VIAL SUBCUT SCH (21:04)
[2021-01-08] VITALS (12 sets, daily range): BP systolic 134–162; BP diastolic 59–91
[2021-01-08] MEDS: SUCRALFATE 1 G/10 ML UDC PO SCH ×4 (05:58→20:57)
[2021-01-08 06:10] LABS: BASOPHILS % 0.5 % (0.0-2.0); EOSINOPHILS % 8.3 % (0.0-5.0); HEMATOCRIT. 28.2 % (36.0-48.0); HEMOGLOBIN. 9.2 g/dL (12.0-16.0); LYMPHOCYTES % 13.9 % (20.0-50.0); MEAN CORPUSCULAR HEMOGLOBIN 24.1 pg (28.0-32.0); MEAN CORPUSCULAR VOLUME 74.1 fL (81.0-99.0); MEAN PLATELET VOLUME 8.7 fl (7.4-10.4); MONOCYTES % 8.2 % (2.0-8.0); NEUTROPHILS % 69.1 % (40.0-76.0); PLATELET 277 x1000/uL (130-400); RED CELL DISTRIBUTION WIDTH 20.5 % (11.6-14.6)
[2021-01-08 06:17] LABS: HEPATITIS B SURFACE AB 4.9 mIU/mL
[2021-01-08 06:28] LABS: HEPATITIS B SURFACE ANTIGEN NEGATIVE
[2021-01-08] MEDS: BLOOD SUGAR DIAGNOSTIC STRIP TEST SCH ×4 (06:30→20:47)
[2021-01-08] MEDS: INSULIN LISPRO 100 UNITS/ML SUBCUT SCH ×4 (06:31→20:48)
[2021-01-08 06:57] LABS: HEPATITIS A AB IGM NEGATIVE (NEGATIVE)
[2021-01-08] MEDS: PANTOPRAZOLE SODIUM 40 MG/VIAL IV SCH ×2 (08:21→20:57)
[2021-01-08] MEDS: FUROSEMIDE 40MG/4ML VIAL IVP SCH ×2 (08:21→16:44)
[2021-01-08] MEDS: ENOXAPARIN 60MG/0.6ML SYR SUBCUT SCH (08:21)
[2021-01-08] MEDS: AMLODIPINE 5MG TABLET PO SCH ×2 (08:22→20:57)
[2021-01-08] MEDS: HYDRALAZINE 20MG/ML VIAL IV PRN (11:18)
[2021-01-08] MEDS: HYDRALAZINE HCL 25MG TABLET PO SCH ×2 (13:41→22:28)
[2021-01-08] MEDS: CEFEPIME 1,000 MG in DEXTROSE 5% WATER 50 ML IV SCH (16:44)
[2021-01-08] MEDS: ATORVASTATIN CALCIUM 10MG TABLET PO SCH (20:57)
[2021-01-08] MEDS: DEXT 5%/0.45% NACL 1000ML 1,000 ML IV SCH (23:13)
[2021-01-09] VITALS (12 sets, daily range): BP systolic 121–158; BP diastolic 58–83
[2021-01-09] MEDS: SUCRALFATE 1 G/10 ML UDC PO SCH ×4 (05:57→21:12)
[2021-01-09] MEDS: HYDRALAZINE HCL 25MG TABLET PO SCH ×3 (05:57→22:30)
[2021-01-09] MEDS: BLOOD SUGAR DIAGNOSTIC STRIP TEST SCH ×4 (06:03→21:05)
[2021-01-09 06:18] LABS: BASOPHILS % 0.6 % (0.0-2.0); EOSINOPHILS % 7.2 % (0.0-5.0); HEMATOCRIT. 28.6 % (36.0-48.0); HEMOGLOBIN. 9.3 g/dL (12.0-16.0); LYMPHOCYTES % 15.2 % (20.0-50.0); MEAN CORPUSCULAR HEMOGLOBIN 24.3 pg (28.0-32.0); MEAN CORPUSCULAR VOLUME 74.3 fL (81.0-99.0); MEAN PLATELET VOLUME 8.2 fl (7.4-10.4); MONOCYTES % 9.9 % (2.0-8.0); NEUTROPHILS % 67.1 % (40.0-76.0); PLATELET 272 x1000/uL (130-400); RED BLOOD CELL COUNT 3.85 mill/uL (4.2-5.4); RED CELL DISTRIBUTION WIDTH 20.8 % (11.6-14.6)
[2021-01-09] MEDS: INSULIN LISPRO 100 UNITS/ML SUBCUT SCH ×4 (07:20→21:00)
[2021-01-09] MEDS: FUROSEMIDE 40MG/4ML VIAL IVP SCH ×2 (08:15→16:19)
[2021-01-09] MEDS: ENOXAPARIN 60MG/0.6ML SYR SUBCUT SCH (08:15)
[2021-01-09] MEDS: PANTOPRAZOLE SODIUM 40 MG/VIAL IV SCH ×2 (08:15→21:12)
[2021-01-09] MEDS: AMLODIPINE 5MG TABLET PO SCH ×2 (08:16→21:13)
[2021-01-09] MEDS ORDERED: *PATIENT'S OWN MEDICATION STORAGE XX SCH (15:15)
[2021-01-09] MEDS ORDERED: NON FORMULARY PATIENT HOME MED XX SCH ×2 (16:00)
[2021-01-09] MEDS: CEFEPIME 1,000 MG in DEXTROSE 5% WATER 50 ML IV SCH (16:20)
[2021-01-09] MEDS: ATORVASTATIN CALCIUM 10MG TABLET PO SCH (21:13)
[2021-01-09] MEDS: DEXT 5%/0.45% NACL 1000ML 1,000 ML IV SCH (23:24)
[2021-01-10] VITALS (14 sets, daily range): BP systolic 117–151; BP diastolic 61–98
[2021-01-10 04:10] LABS: HIV SCREEN 4G Non Reactive (Non Reactive)
[2021-01-10] MEDS: SUCRALFATE 1 G/10 ML UDC PO SCH ×5 (05:54→21:28)
[2021-01-10] MEDS: HYDRALAZINE HCL 25MG TABLET PO SCH ×3 (05:58→21:28)
[2021-01-10] MEDS: BLOOD SUGAR DIAGNOSTIC STRIP TEST SCH ×4 (06:01→20:32)
[2021-01-10 06:34] LABS: BASOPHILS % 0.5 % (0.0-2.0); EOSINOPHILS % 7.6 % (0.0-5.0); HEMATOCRIT. 28.5 % (36.0-48.0); HEMOGLOBIN. 9.5 g/dL (12.0-16.0); LYMPHOCYTES % 16.7 % (20.0-50.0); MEAN CORPUSCULAR HEMOGLOBIN 24.4 pg (28.0-32.0); MEAN CORPUSCULAR VOLUME 73.6 fL (81.0-99.0); MEAN PLATELET VOLUME 8.4 fl (7.4-10.4); MONOCYTES % 8.8 % (2.0-8.0); NEUTROPHILS % 66.4 % (40.0-76.0); PLATELET 284 x1000/uL (130-400); RED BLOOD CELL COUNT 3.87 mill/uL (4.2-5.4); RED CELL DISTRIBUTION WIDTH 20.6 % (11.6-14.6)
[2021-01-10] MEDS: INSULIN LISPRO 100 UNITS/ML SUBCUT SCH ×4 (07:20→20:32)
[2021-01-10] MEDS: PANTOPRAZOLE SODIUM 40 MG/VIAL IV SCH ×2 (08:19→21:28)
[2021-01-10] MEDS: FUROSEMIDE 40MG/4ML VIAL IVP SCH ×2 (08:19→17:06)
[2021-01-10] MEDS: AMLODIPINE 5MG TABLET PO SCH ×2 (08:24→21:29)
[2021-01-10] MEDS: ENOXAPARIN 60MG/0.6ML SYR SUBCUT SCH (08:24)
[2021-01-10] MEDS ORDERED: LACTULOSE 20G/30ML UDC PO NR (11:30)
[2021-01-10] MEDS: CEFEPIME 1,000 MG in DEXTROSE 5% WATER 50 ML IV SCH (17:06)
[2021-01-10] MEDS: FLUOCINONIDE 0.05% CREAM 15GM TOP SCH (17:17)
[2021-01-10] MEDS: ATORVASTATIN CALCIUM 10MG TABLET PO SCH (21:28)
[2021-01-10] MEDS: EPOETIN ALFA-EPBX 4,000 UNIT/ML VIAL SUBCUT SCH (21:28)
[2021-01-11] VITALS (26 sets, daily range): BP systolic 140–176; BP diastolic 64–80
[2021-01-11] MEDS: DEXT 5%/0.45% NACL 1000ML 1,000 ML IV SCH ×2 (03:19)
[2021-01-11] MEDS: SUCRALFATE 1 G/10 ML UDC PO SCH ×3 (05:55→15:55)
[2021-01-11] MEDS: HYDRALAZINE HCL 25MG TABLET PO SCH ×2 (05:55→15:55)
[2021-01-11] MEDS: BLOOD SUGAR DIAGNOSTIC STRIP TEST SCH ×2 (06:04→11:35)
[2021-01-11 07:12] LABS: BASOPHILS % 0.9 % (0.0-2.0); EOSINOPHILS % 8.7 % (0.0-5.0); HEMATOCRIT. 26.9 % (36.0-48.0); HEMOGLOBIN. 8.9 g/dL (12.0-16.0); LYMPHOCYTES % 15.6 % (20.0-50.0); MEAN CORPUSCULAR HEMOGLOBIN 24.7 pg (28.0-32.0); MEAN CORPUSCULAR VOLUME 74.8 fL (81.0-99.0); MEAN PLATELET VOLUME 8.2 fl (7.4-10.4); MONOCYTES % 11.2 % (2.0-8.0); NEUTROPHILS % 63.6 % (40.0-76.0); PLATELET 318 x1000/uL (130-400); RED CELL DISTRIBUTION WIDTH 19.8 % (11.6-14.6)
[2021-01-11] MEDS: INSULIN LISPRO 100 UNITS/ML SUBCUT SCH ×2 (07:20→12:20)
[2021-01-11] MEDS ORDERED: FENTANYL CITRATE/PF 50MCG/ML 2ML VIAL ONE (08:02)
[2021-01-11] MEDS ORDERED: FENTANYL CITRATE/PF 50MCG/ML 2ML VIAL IV ONE (08:15)
[2021-01-11] MEDS: FUROSEMIDE 40MG/4ML VIAL IVP SCH (10:08)
[2021-01-11] MEDS: PANTOPRAZOLE SODIUM 40 MG/VIAL IV SCH (10:08)
[2021-01-11] MEDS: AMLODIPINE 5MG TABLET PO SCH (10:08)
[2021-01-11] MEDS: FLUOCINONIDE 0.05% CREAM 15GM TOP SCH (16:18)
[2021-01-11] MEDS ORDERED: EPOETIN ALFA-EPBX 10,000 UNIT/ML VIAL SUBCUT NR (21:00)
== END 2021-01-11 18:10 | disposition home or self-care (01) | DRG 871 ==
LOC: ER 15:59 → EDBEDREQTM 16:56 → EDBEDREQ 16:56 → CVICU 18:20 → EDBEDREQTM 18:22 → EDBEDREQ 18:22 → EDBEDREQSVC 18:22 → ENRESERV 21:16 → CVICU 01-05 12:23 → 3WST 01-06 18:35
PROVIDERS: ADMIT Internal Medicine; ATTEND Internal Medicine
PROC: 30233N1 Transfusion of Nonautologous Red Blood Cells into Peripheral Vein, Percutaneous Approach (ICD-10-PCS; principal; 2021-01-02)
PROC: 02HV33Z Insertion of Infusion Device into Superior Vena Cava, Percutaneous Approach (ICD-10-PCS; 2021-01-03)
PROC: B548ZZA Ultrasonography of Superior Vena Cava, Guidance (ICD-10-PCS; 2021-01-03)
PROC: 5A1D70Z Performance of Urinary Filtration, Intermittent, Less than 6 Hours Per Day (ICD-10-PCS; 2021-01-03)
PROC: 02HV33Z Insertion of Infusion Device into Superior Vena Cava, Percutaneous Approach (ICD-10-PCS; 2021-01-04)
PROC: B548ZZA Ultrasonography of Superior Vena Cava, Guidance (ICD-10-PCS; 2021-01-04)
PROC: 5A1D70Z Performance of Urinary Filtration, Intermittent, Less than 6 Hours Per Day (ICD-10-PCS; 2021-01-05)
PROC: 0DB68ZX Excision of Stomach, Via Natural or Artificial Opening Endoscopic, Diagnostic (ICD-10-PCS; 2021-01-06)
PROC: 0DBN8ZZ Excision of Sigmoid Colon, Via Natural or Artificial Opening Endoscopic (ICD-10-PCS; 2021-01-06)
PROC: 0DBL8ZZ Excision of Transverse Colon, Via Natural or Artificial Opening Endoscopic (ICD-10-PCS; 2021-01-06)
PROC: 0DBN8ZX Excision of Sigmoid Colon, Via Natural or Artificial Opening Endoscopic, Diagnostic (ICD-10-PCS; 2021-01-06)
PROC: 0DBL8ZX Excision of Transverse Colon, Via Natural or Artificial Opening Endoscopic, Diagnostic (ICD-10-PCS; 2021-01-06)
PROC: 5A1D70Z Performance of Urinary Filtration, Intermittent, Less than 6 Hours Per Day (ICD-10-PCS; 2021-01-10)
PROC: 0JH63XZ Insertion of Tunneled Vascular Access Device into Chest Subcutaneous Tissue and Fascia, Percutaneous Approach (ICD-10-PCS; 2021-01-11)
PROC: B548ZZA Ultrasonography of Superior Vena Cava, Guidance (ICD-10-PCS; 2021-01-11)
PROC: 02HV33Z Insertion of Infusion Device into Superior Vena Cava, Percutaneous Approach (ICD-10-PCS; 2021-01-11)
PROC: B5181ZA Fluoroscopy of Superior Vena Cava using Low Osmolar Contrast, Guidance (ICD-10-PCS; 2021-01-11)
DX: A40.1 Sepsis due to streptococcus, group B (principal); I50.43 Acute on chronic combined systolic (congestive) and diastolic (congestive) heart failure; N18.6 End stage renal disease; I63.441 Cerebral infarction due to embolism of right cerebellar artery; J18.9 Pneumonia, unspecified organism; E87.1 Hypo-osmolality and hyponatremia; N39.0 Urinary tract infection, site not specified; N17.9 Acute kidney failure, unspecified; J81.1 Chronic pulmonary edema; G93.40 Encephalopathy, unspecified; E87.2 Acidosis; I13.2 Hypertensive heart and chronic kidney disease with heart failure and with stage 5 chronic kidney disease, or end stage renal disease; I43 Cardiomyopathy in diseases classified elsewhere; Z20.822 Contact with and (suspected) exposure to COVID-19; J44.9 Chronic obstructive pulmonary disease, unspecified; I27.21 Secondary pulmonary arterial hypertension; D50.9 Iron deficiency anemia, unspecified; E03.9 Hypothyroidism, unspecified; E11.22 Type 2 diabetes mellitus with diabetic chronic kidney disease; E11.65 Type 2 diabetes mellitus with hyperglycemia; E78.5 Hyperlipidemia, unspecified; K29.70 Gastritis, unspecified, without bleeding; K44.9 Diaphragmatic hernia without obstruction or gangrene; K57.30 Diverticulosis of large intestine without perforation or abscess without bleeding; K63.5 Polyp of colon; K64.8 Other hemorrhoids; R09.02 Hypoxemia; L40.9 Psoriasis, unspecified; E11.42 Type 2 diabetes mellitus with diabetic polyneuropathy; R00.1 Bradycardia, unspecified; E87.5 Hyperkalemia; B95.1 Streptococcus, group B, as the cause of diseases classified elsewhere; Z82.49 Family history of ischemic heart disease and other diseases of the circulatory system; Z99.2 Dependence on renal dialysis; Z86.73 Personal history of transient ischemic attack (TIA), and cerebral infarction without residual deficits; Z88.8 Allergy status to other drugs, medicaments and biological substances; Z79.82 Long term (current) use of aspirin; Z79.899 Other long term (current) drug therapy
CPT/HCPCS: 36415; 36558; 36589; 36600; 70551; 71045; 76937; 77001; 80048; 80053; 80061; 81003; 82270; 82375; 82550; 82553; 82607; 82728; 82746; 82805; 82962; 83036; 83540; 83550; 83735; 83880; 84100; 84132; 84145; 84436; 84439; 84443; 84484; 85025; 85044; 85384; 85651; 86140; 86705; 86706; 86709; 86803; 86850; 86900; 86920; 87340; 87389; 87426; 88305; 88312; 88313; 92610; 93005; 93306; 93880; 93970; 97116; 97162; 97166; 97535; 99152; 99153; 99291; C1725; C1750; C1752; C1769; C9113; J0360; J0692; J0885; J1265; J1642; J1650; J1815; J1940; J2250; J2405; J2543; J3010; J3490; J7030; J7040; J7042; J7050; J7060; P9016; U0003; A4315; G0500